=== PATIENT | female | born 1970 | race Caucasian/White ===

== ENCOUNTER 2018-07-25 21:17 | Emergency (ER) | payer OTHER ==
[2018-07-25] MEDS ORDERED: 0.9 % SODIUM CHLORIDE 1000ML 1,000 ML IV SCH (21:30)
[2018-07-25] MEDS ORDERED: DIPHENHYDRAMINE HCL 50 MG/ML VIAL IVP ONE (21:30)
[2018-07-25] MEDS ORDERED: METOCLOPRAMIDE HCL 10 MG/2 ML VIAL IVP ONE (21:30)
[2018-07-25] MEDS ORDERED: KETOROLAC 30 MG/ML VIAL IVP ONE (21:30)
--- NOTE | 2018-07-25 21:36 | Emergency Department Record ---
History of Present Illness - General Chief Complaint: Fall Injury Stated Complaint: FALL/VISION CHANGES/MCNEILL Time Seen by Provider: 07/25/18 21:18 Source: Patient Mode of Arrival: Ambulatory Limitations: No limitations - History of Present Illness Initial Comments: 47 yo female presents to ED for evaluation of worsening headache symptoms following ahead injury which occurred approximately 72 hours ago. Patient was using [employer] video-game visual device and was unaware that she was falling forward. Patient struck her right forehead on a hardwood floor resulting in swelling to the right forehead. Patient denies anticoagulation medication use, reports nausea and vomiting x 1 this evening. Patient did take Tylenol for her headache symptoms earlier this morning as well. MD Complaint: Fall Onset/Timin -: Days(s) Fall From: Other When Fall Occurred: # Days [employer] Fall Witnessed: Yes, by family Place Fall Occurred: Home Loss of Consciousness: None Prolonged Down Time?: No Symptoms Prior to Fall: None Location: Head Severity: Moderate Quality: Aching Context: Tripped/slipped Associated Symptoms: Headache - [place] Coma Scale Eye Response: (4) Open spontaneously Motor Response: (6) Obeys commands Verbal Response: (5) Oriented [place] Total: 15 - Related Data Home Medications Medication Instructions Recorded Confirmed Last Taken Bupropion HCl [Wellbutrin Xl] 300 mg PO DAILY 07/25/18 07/25/18 Unknown Cyclobenzaprine HCl [Flexeril] 10 mg PO TID PRN 07/25/18 07/25/18 Unknown Fluoxetine HCl [Prozac] 30 mg PO DAILY 07/25/18 07/25/18 Unknown Lamotrigine [Lamictal] 200 mg PO DAILY 07/25/18 07/25/18 Unknown Temazepam [Restoril] 30 mg PO QHS PRN 07/25/18 07/25/18 Unknown Allergies Allergy/AdvReac Type Severity Reaction Status Date / Time Penicillins Allergy HIVES Verified 07/25/18 21:27 Review of Systems Constitutional: Denies: Chills, Fever, Malaise, Night sweats Eyes: Denies: Eye discharge, Eye pain ENT: Denies: Congestion, Ear pain, Epistaxis Respiratory: Denies: Cough, Dyspnea Cardiovascular: Denies: Chest pain, Dyspnea on exertion Endocrine: Denies: Fatigue, Heat or cold intolerance Gastrointestinal: Reports: Nausea, Vomiting. Denies: Abdominal pain Genitourinary: Denies: Incontinence, Retention Musculoskeletal: Denies: Arthralgia, Back pain Skin: Reports: Bruising (Right josafat-orbital region). Denies: Change in color Neurological: Reports: Headache. Denies: Abnormal gait, Confusion, Seizure Psychiatric: Denies: Anxiety Hematological/Lymphatic: Denies: Anemia, Blood Clots Physical Exam - General General Appearance: Alert, Oriented x3, Cooperative, Moderate distress Limitations: No limitations - Head Head exam: Atraumatic, Normocephalic, Normal inspection Head exam detail: Contusion, Other (STS and ecchymosis to the right forehead, mild right josafat-orbital ecchymosis). negative: Abrasion, Ajime's sign, General tenderness, Hematoma, Laceration - Eye Eye exam: negative: Conjunctival injection, Periorbital swelling, Periorbital tenderness, Scleral icterus - ENT Ear exam: negative: Auricular hematoma, Auricular trauma Nasal Exam: negative: Active bleeding, Discharge, Dried blood, Foreign body Mouth exam: negative: Drooling, Laceration, Muffled voice, Tongue elevation - Neck Neck exam: Normal inspection. negative: Meningismus, Tenderness - Respiratory Respiratory exam: Normal lung sounds bilaterally. negative: Rales, Respiratory distress, Rhonchi, Stridor - Cardiovascular Cardiovascular Exam: Regular rate, Normal rhythm, Normal heart sounds - GI/Abdominal GI/Abdominal exam: Soft. negative: Rebound, Rigid, Tenderness - Rectal Rectal exam: Deferred - exam: Deferred - Extremities Extremities exam: Normal inspection. negative: Pedal edema, Tenderness - Back Back exam: Denies: CVA tenderness (R), CVA tenderness (L) - Neurological Neurological exam: Alert, Normal gait, Oriented X3 - Psychiatric Psychiatric exam: Normal affect, Normal mood - Skin Skin exam: Normal color. negative: Abrasion Type of lesion: negative: abrasion Course Vital Signs 07/25/18 21:26 Temperature 97.8 F Pulse Rate [ 79 Pulse Ox Probe] Respiratory 20 Rate Blood Pressure 161/116 [Left Arm] Pulse Ox 97 - Reevaluation(s) Reevaluation #1: 07/25/18 22:21 CT Brain: STS right forehead No intra-cranial injury identified. Reevaluation #2: 07/25/18 22:30 Patient was reassessed and updated on her CT imaging result Reports that her headache symptoms are improved from 8/10 to 4/10 and is feeling much better. Patient appears stable for discharge at this time after counseling re: post- concussive headache treatment was discussed. Disposition Disposition: Discharge Clinical Impression: Post-concussion headache Disposition: Home, Self-Care Condition: (2) Stable Instructions: Post Concussion Syndrome (ED) Additional Instructions: Return to ED if your symptoms worsen or if you have any concerns. Follow-up with your family doctor in 3-5 days as directed. Forms: Patient Portal Access Time of Disposition: 22:08 Quality - Quality Measures Quality Measures: N/A - Blood Pressure Screening Does Patient Have Any of the Following: No Blood Pressure Classification: Pre-Hypertensive BP Reading Systolic Measurement: 138 Diastolic Measurement: 89 Screening for High Blood Pressure: < Pre-Hypertensive BP, F/U Documented > [ G8950] Pre-Hypertensive Follow-up Interventions: Referral to alternative/primary care provider.
--- NOTE | 2018-07-27 09:42 | CT SCAN REPORT ---
EXAM: EMERGENCY HEAD CT WITHOUT CONTRAST HISTORY: PATIENT FELL ON MONDAY WHILE PLAYING VIRTUAL REALITY PLAY STATION, STILL HAVING HEADACHES. TECHNIQUE: Axial CT scan of the head was performed without IV contrast. Comparison: None. Encounter: Initial. FINDINGS: No definite acute intracranial hemorrhage identified. No focal mass effect or midline shift evident. No definite acute infarct or intracranial mass lesion seen. There is some soft tissue swelling in the scalp overlying the right forehead. No definite underlying calvarial fracture identified. IMPRESSION: 1. SOFT TISSUE SWELLING IN THE SCALP OVERLYING THE RIGHT FOREHEAD. 2. NO ACUTE INTRACRANIAL HEMORRHAGE OR FOCAL MASS EFFECT IDENTIFIED. JOB NUMBER: [id number] MTDD
== END 2018-07-25 22:41 | disposition home or self-care (01) ==
LOC: ER 21:17
DX: G44.319 Acute post-traumatic headache, not intractable (principal); F07.81 Postconcussional syndrome; R11.2 Nausea with vomiting, unspecified
CPT/HCPCS: 70450; 96361; 96374; 96375; 99284; J1200; J1885; J2765; J7030

== ENCOUNTER 2018-12-22 19:02 | Emergency (ER) | payer OTHER ==
[2018-12-22 19:37] LABS: BASO % 0.6 % (0-6); EOS % 0.8 % (0-6); GRAN % 64.6 % (47-80); HEMATOCRIT 38.6 % (35.0-47.0); HEMOGLOBIN 13.2 gm/dl (11.6-16.0); LYMPH % 26.6 % (16-45); MEAN CELL VOLUME 84.6 fl (81-97); MEAN CORPUSCULAR HEMOGLOBIN 28.9 pg (27-33); MEAN CORPUSCULAR HGB CONC 34.2 g/dl (32-36); MEAN PLATELET VOLUME 9.5 fl (7.4-10.4); MONO % 7.4 % (0-9); PLATELET COUNT 184 K/uL (130-400); RED BLOOD COUNT 4.56 M/uL (3.80-5.40); RED CELL DISTRIBUTION WIDTH 12.7 % (11.5-14.5); WHITE BLOOD COUNT W/O DIFF 4.7 K/uL (4.2-12.2)
--- NOTE | 2018-12-22 19:37 | Emergency Department Record ---
History of Present Illness - General Chief Complaint: Chest Pain Stated Complaint: CHEST PAIN Time Seen by Provider: 12/22/18 19:05 Source: Patient Mode of Arrival: Ambulatory Limitations: No limitations - History of Present Illness Initial Comments: 48 yo female presents with pain on and off in the chest, left and right arm, and left leg for about a week. The pain will come on at different times. It is sharp and last for the entire day. She reports it hurts to take a deep breath at times causing her to feel short of breath. Sometimes it involved the entire left side or the body and other times in the right arm. No cough. No known history of CAD, PE, DVT. She denies DM, elevated cholesterol, smoking or treatment for HTN. No calf pain. Her father had an OK in his mid 50's MD Complaint: Chest pain, Other Onset/Timin -: Week(s) Onset: During exertion Pain Location: Epigastric Pain Radiation: LUE, Neck Severity: Moderate Quality: Sharp Consistency: Intermittent Improves With: Remaining still Worsens With: Inspiration, Movement Treatments Prior to Arrival: None - Related Data Allergies Allergy/AdvReac Type Severity Reaction Status Date / Time Penicillins Allergy HIVES Verified 07/25/18 21:27 Travel Screening - Travel/Exposure Within Last 30 Days Have you traveled within the last 30 days?: No Review of Systems Constitutional: Denies: Chills, Fever, Malaise, Weakness Eyes: Denies: Eye discharge, Eye pain, Photophobia, Vision change ENT: Reports: Other. Denies: Congestion, Dental pain, Ear pain, Epistaxis, Throat pain Respiratory: Reports: Dyspnea. Denies: Cough, Hemoptysis, Stridor, Wheezes Cardiovascular: Reports: Chest pain. Denies: Dyspnea on exertion, Edema, Palpitations, Syncope Endocrine: Denies: Fatigue Gastrointestinal: Denies: Abdominal pain, Constipation, Diarrhea, Nausea, Vomiting Genitourinary: Denies: Discharge, Dysuria, Urgency Musculoskeletal: Reports: Back pain, Myalgia, Neck pain. 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 - Hx Genitourinary Disorders: No - ENDOCRINE Hx Endocrine Disorders: No - MUSCULOSKELETAL Hx Musculoskeletal Disorders: Yes Comment:: TMJ; Carpal tunnel - PSYCH Hx Psych Problems: Yes Hx Depression: Yes Comment:: PTSD; Bipolar - HEMATOLOGY/ONCOLOGY Hx Hematology/Oncology Disorders: No Family Medical History Any Significant Family History?: Yes Hx Cancer: Grandparents Hx Diabetes: Father, Mother Hx HTN: Father, Mother Hx Stroke: Father Physical Exam - General General Appearance: Alert, Oriented x3, Cooperative, No acute distress Limitations: No limitations - Head Head exam: Atraumatic, Normocephalic, Normal inspection - Eye Eye exam: Normal appearance, PERRL. negative: Conjunctival injection, Scleral icterus - ENT ENT exam: Normal exam, Mucous membranes moist Ear exam: Normal external inspection Nasal Exam: Normal inspection Mouth exam: Normal external inspection Teeth exam: Normal inspection Throat exam: Normal inspection - Neck Neck exam: Normal inspection, Full ROM. negative: Lymphadenopathy, Meningismus , Tenderness, Thyromegaly - Respiratory Respiratory exam: Normal lung sounds bilaterally. negative: Accessory muscle use, Chest wall tenderness, Decreased breath sounds, Prolonged expiratory, Respiratory distress, Rhonchi, Stridor, Wheezes - Cardiovascular Cardiovascular Exam: Regular rate, Normal rhythm, Normal heart sounds. negative : Diastolic murmur, Gallop, Irregular rhythm, Systolic murmur, Tachycardia Peripheral Pulses: 2+: Radial (R), Radial (L) - GI/Abdominal GI/Abdominal exam: Soft. negative: Tenderness - Rectal Rectal exam: Deferred - exam: Deferred - Extremities Extremities exam: Normal inspection, Full ROM. negative: Calf tenderness, Pedal edema, Tenderness - Back Back exam: Reports: Tenderness, Vertebral tenderness. Denies: CVA tenderness (R ), CVA tenderness (L), Paraspinal tenderness - Neurological Neurological exam: Alert, Normal gait, Oriented X3. negative: Abnormal gait, Motor sensory deficit - Psychiatric Psychiatric exam: Normal affect, Normal mood. negative: Agitated, Anxious - Skin Skin exam: Dry, Intact, Normal color, Warm Course Vital Signs 12/22/18 19:05 Temperature 98.0 F Pulse Rate 71 Respiratory 16 Rate Blood Pressure 142/106 Pulse Ox 99 - Reevaluation(s) Reevaluation #1: 12/22/18 19:26 EKG #1: 19:18 Rate: 72 Rhythm: sinus [place]: normal Intervals: normal ST segments: normal Prior: none 12/22/18 19:27 12/22/18 20:14 The labs were reviewed The troponin is normal Mild elevation in the D-dimer. CTA ordered Minimal elevation of the LFTs Normal renal function The CTA of the chest was negative The patient was informed to follow up the final results with her PCP The pain is atypical lasting for entire day at a time, sometimes involves the entire side of the body, hurts to breath at times Her HEART SCORE is low risk DC home She will be referred to the cardiology clinic at [facility] as well 12/22/18 Medical Decision Making - Lab Data Result diagrams: 12/22/18 19:30 12/22/18 19:30 Disposition Disposition: Discharge Clinical Impression: Atypical chest pain Disposition: Home, Self-Care Condition: (1) Good Instructions: Chest Pain (ED) Additional Instructions: Return to the ED if the symptoms return or and concerns You have been referred to the cardiology clinic at [facility] for follow up of the chest pain You have a small nodule in the right lung. You will need to follow this up with your doctor in the next 1-2 months See you doctor regarding the pain down your left leg. This may be a pinched nerve (sciatica) that requires further testing Referrals: BC JACQUES M.D. [MEDICAL DOCTOR] - Forms: Patient Portal Access Time of Disposition: 22:00 Quality - Quality Measures Quality Measures: N/A - Blood Pressure Screening Does Patient Have Any of the Following: No Blood Pressure Classification: Hypertensive Reading Systolic Measurement: 142 Diastolic Measurement: 106 Screening for High Blood Pressure: < Pre-Hypertensive BP, F/U Documented > [ G8950] Pre-Hypertensive Follow-up Interventions: Referral to alternative/primary care provider.
[2018-12-22 19:46] LABS: BLOOD UREA NITROGEN 16 mg/dL (6-20); CREATININE 0.9 mg/dL (0.5-0.9); EST GLOMERULAR FILTRATION RATE > 60 mL/min
[2018-12-22 19:47] LABS: TOTAL PROTEIN 7.4 g/dL (6.6-8.7)
[2018-12-22 19:49] LABS: GLUCOSE,RANDOM 91 mg/dL (74-109); PARTIAL THROMBOPLASTIN TIME 28.2 SECONDS (24.5-39.1); PROTHROMBIN TIME (PATIENT) 10.1 SECONDS (9.5-12.1)
[2018-12-22 19:51] LABS: ALB/GLOB RATIO 1.6 (1.1-1.8); ALBUMIN 4.5 g/dL (4.0-5.0); ALT/SGPT 57 U/L (<33); AST/SGOT 36 U/L (10.0-35.0)
[2018-12-22 19:52] LABS: ALKALINE PHOSPHATASE 119 U/L (35-104)
[2018-12-22] MEDS ORDERED: KETOROLAC 30 MG/ML VIAL IVP ONE (21:22)
--- NOTE | 2018-12-25 12:36 | CT ANGIOGRAM REPORT ---
EXAM: CTA OF THE CHEST HISTORY: CHEST PAIN, TECHNIQUE: After the intravenous administration of 90 ml Omnipaque 350, axial images are obtained in CTA technique from the thoracic inlet to the lung bases. Post processed MIP images are evaluated. FINDINGS: The thoracic inlet and axilla are unremarkable. The mediastinum is normal, but there are mildly enlarged right hilar lymph nodes. The heart is normal in size. The aorta is normal. There is no evidence of acute intraluminal filling defects in the pulmonary arteries. There is evidence of focal consolidative appearing nodular density in the posterior right lower lobe. The nodule measures 15 mm in dimension and is surrounded by ground glass infiltrate in much of the remaining right lower lobe. There is minor ground glass infiltrate in the left lower lobe. The upper lungs are relatively clear. There are no additional parenchymal nodules. There is a trace amount of right pleural fluid. The upper abdomen is unremarkable. IMPRESSION: 1. THERE IS NO EVIDENCE OF AN ACUTE EMBOLISM. 2. NODULAR DENSITY IN THE RIGHT LOWER LOBE. THE ADJACENT/SURROUNDING GROUND GLASS INFILTRATE MIGHT FAVOR THE PROCESS BEING INFLAMMATORY IN NATURE AND THE LYMPH NODES BEING REACTIVE, HOWEVER, A FOLLOW-UP CT SCAN OF THE CHEST AFTER AN APPROPRIATE COURSE OF ANTIBIOTIC THERAPY IS RECOMMENDED TO EXCLUDE NEOPLASM. JOB NUMBER: [id number] MTDD
== END 2018-12-22 22:12 | disposition home or self-care (01) ==
LOC: ER 19:02
DX: R07.89 Other chest pain (principal); R10.13 Epigastric pain
CPT/HCPCS: 71275; 80053; 84484; 85025; 85379; 85610; 85730; 93005; 93010; 96374; 99284; J1885

== ENCOUNTER 2019-04-04 12:10 | Emergency (ER) | payer OTHER ==
[2019-04-04] MEDS ORDERED: KETOROLAC 30 MG/ML VIAL IM ONE (12:31)
--- NOTE | 2019-04-04 12:45 | Emergency Department Record ---
History of Present Illness - General Chief complaint: Head Injury Stated complaint: HEAD INJURY Time Seen by Provider: 04/04/19 12:14 Source: Patient, Family Mode of Arrival: Ambulatory Limitations: No limitations - History of Present Illness Initial comments: The patient is here after tripping and falling while running a half hour ago. She fell onto some rocks hitting her L face and head and her L arm, hand and R knee. There was no LOC and the patient denies any neck or back pain. She did ambulate here with no difficulty. The patient is having pain to her L face and eye area and also her L arm and hand. There is no R knee pain. The patient's Tetanus is UTD. The patient denies any visual changes or blurriness. MD Complaint: Fall Onset/Timin -: Minutes(s) Location: Face, Frontal, Occipital Loss of Consciousness: No Previous Trauma to this Area: No Place: Outdoors Severity: Moderate Severity scale (1-10): 9 Quality: Sharp Consistency: Constant Provoking factors: None known Other Injuries: None Associated Symptoms: Denies other symptoms - Related Data Home Medications Medication Instructions Recorded Confirmed Last Taken Bupropion HCl [Wellbutrin Xl] 300 mg PO DAILY 04/04/19 04/04/19 Unknown Allergies/Adverse reactions: Allergies Allergy/AdvReac Type Severity Reaction Status Date / Time Penicillins Allergy HIVES Verified 04/04/19 12:15 Travel Screening - Travel/Exposure Within Last 30 Days Have you traveled within the last 30 days?: No Review of Systems Constitutional: Denies: Chills, Fever Eyes: Denies: Eye discharge ENT: Denies: Congestion Respiratory: Denies: Cough, Dyspnea Cardiovascular: Denies: Arrhythmia Past Medical History - SOCIAL HISTORY Smoking Status: Never smoker Alcohol Use: None Drug Use: None - RESPIRATORY Hx Respiratory Disorders: No - CARDIOVASCULAR Hx Cardio Disorders: No - NEURO Hx Neuro Disorders: Yes Hx Headaches: Yes - GI Hx GI Disorders: No 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 - Hx Genitourinary Disorders: No - ENDOCRINE Hx Endocrine Disorders: No - MUSCULOSKELETAL Hx Musculoskeletal Disorders: Yes Comment:: TMJ; Carpal tunnel - PSYCH Hx Psych Problems: Yes Hx Depression: Yes Comment:: PTSD; Bipolar - HEMATOLOGY/ONCOLOGY Hx Hematology/Oncology Disorders: No Family Medical History Any Significant Family History?: Yes Hx Cancer: Grandparents Hx Diabetes: Father, Mother Hx HTN: Father, Mother Hx Stroke: Father Physical Exam - General General Appearance: Alert, Oriented x3, Cooperative, No acute distress - Head Head exam: Normocephalic. negative: Atraumatic, Normal inspection Head exam detail: Contusion (There is a significant L frontal and supra-orbital contusion.) Image of Face/Head: 1 - Area of trauma and swelling. 2 - Area of pain and tenderness and swelling. - Eye Eye exam: PERRL, EOMI, Periorbital swelling (L eye only.), Periorbital tenderness (L eye superior and inferior to the eyeball.). negative: Normal appearance, Conjunctival injection - ENT Throat exam: Normal inspection. negative: Tonsillar erythema, Tonsillar exudate - Neck Neck exam: Normal inspection, Full ROM. negative: Tenderness (There is no Cspine tenderness.) - Respiratory Respiratory exam: Normal lung sounds bilaterally. negative: Respiratory distress - Cardiovascular Cardiovascular Exam: Regular rate, Normal rhythm, Normal heart sounds - GI/Abdominal GI/Abdominal exam: Soft, Normal bowel sounds. negative: Tenderness - Extremities Extremities exam: Full ROM (There is full ROM to the R knee with no pain. ), Tenderness (There is tenderness to the L forearm and dorsal L hand. There is road rash to the L medial proximal forearm area and R anterior knee. There is no R knee tenderness.). negative: Normal inspection Image of Full Body: 1 - Road rash and tenderness. 2 - Road rash but no tenderness. - Neurological Neurological exam: Alert, Normal gait, Oriented X3. negative: Abnormal gait, Altered, Motor sensory deficit - Skin Skin exam: Rash Course Vital Signs 04/04/19 12:16 Temperature 97.6 F Pulse Rate 72 Respiratory 16 Rate Blood Pressure 145/90 Pulse Ox 98 - Reevaluation(s) Reevaluation #1: The patient is doing better at this time. Her xrays are all neg for fx or dislocation. I did discuss the need to take her home pain medicines and ice the affected areas aggressively. She is to see her PCP early next week for recheck and to return to the ER for any worsening symptoms. 04/04/19 13:54 Medical Decision Making - Data Complexity MDM Data: X-Ray Ordered and/or Reviewed - Radiology Data Radiology results: Report reviewed (All xrays neg for fx or dislocation.) Disposition Disposition: Discharge Clinical Impression: Facial contusion Qualifiers: Encounter type: initial encounter Qualified Code(s): S00.83XA - Contusion of other part of head, initial encounter Abrasion forearm Qualifiers: Encounter type: initial encounter Laterality: left Qualified Code(s): S50.812A - Abrasion of left forearm, initial encounter Disposition: Home, Self-Care Condition: (2) Stable Instructions: Head Injury (ED) Additional Instructions: Please ice the swollen areas as much as possible and keep the abrasions clean and dressed with Antibiotic ointment during the day. Please see your family doctor for recheck next week and return to the ER for any worsening symptoms. Forms: Patient Portal Access Time of Disposition: 13:56 Quality - Quality Measures Quality Measures: Blunt Head Trauma (>2yr) - Blunt Head Trauma - Adult Quality Measure: Measure #415: Utilization of CT for Minor Blunt Head Trauma ICD10 Codes Entered: Yes View Details: Yes Was CT ordered: Yes Does Patient Have Any of the Following: Taking Antiplatelet Med [place] Score: Please complete [place] Coma Scale above Utilization of CT for Minor Blunt Head Trauma: Patient Excluded [G9531] - Blood Pressure Screening View Details: Yes Does Patient Have Any of the Following: No Blood Pressure Classification: Hypertensive Reading Systolic Measurement: 145 Diastolic Measurement: 90 Screening for High Blood Pressure: < First Hypertensive BP, F/U Documented > [Q8 950] First Hypertensive Follow-up Interventions: Referral to alternative/primary care provider.
--- NOTE | 2019-04-05 08:01 | CT SCAN REPORT ---
EXAM: CT SCAN OF THE BRAIN WITHOUT CONTRAST HISTORY: PATIENT TRIPPED WHILE RUNNING AND FELL. STRUCK THE FACE ON THE GROUND. TECHNIQUE: Standard CT imaging of the brain was performed in the axial plane without contrast. Additional coronal and sagittal reformatted images were also performed. Comparison: 07/25/18. Encounter: Initial. Hand dominance: Right. FINDINGS: The ventricles and subarachnoid spaces are normal. There is no mass, mass effect, intracranial hemorrhage, visible infarct, or abnormal extraaxial fluid. The skull is intact. Left periorbital soft tissue swelling/hematoma is present. The intraorbital contents are normal. The visualized facial bones appear intact. The paranasal sinuses are clear. The mastoid air cells are also clear. IMPRESSION: 1. NO ACUTE INTRACRANIAL ABNORMALITY OR SKULL FRACTURE. 2. LEFT PERIORBITAL SOFT TISSUE SWELLING/HEMATOMA. J[facility]BER: [id number] [facility]
--- NOTE | 2019-04-05 08:02 | RADIOLOGY REPORT ---
EXAM: LEFT HAND HISTORY: TRIPPED AND FELL WHILE RUNNING. LEFT HAND PAIN. TECHNIQUE: Three views of the left hand were obtained. Comparison: None. FINDINGS: The bones appear intact. There is no acute fracture or dislocation. There is no radiopaque foreign body. IMPRESSION: NO FRACTURE IDENTIFIED. JOB NUMBER: [id number] MTDD
--- NOTE | 2019-04-05 08:05 | RADIOLOGY REPORT ---
EXAM: LEFT FOREARM HISTORY: LEFT FOREARM PAIN AND ABRASIONS STATUS POST FALL. TECHNIQUE: Two views of the left forearm were obtained. Comparison: Left hand series from the same date. Encounter: Initial. FINDINGS: The bones appear intact. There is no acute fracture or dislocation. There is no elbow effusion. There are no radiopaque foreign bodies. IMPRESSION: NO FRACTURE IDENTIFIED. JOB NUMBER: [id number] MTDD
== END 2019-04-04 14:08 | disposition home or self-care (01) ==
LOC: ER 12:10
DX: S00.83XA Contusion of other part of head, initial encounter (principal); S50.812A Abrasion of left forearm, initial encounter; S80.211A Abrasion, right knee, initial encounter; M25.542 Pain in joints of left hand; W18.09XA Striking against other object with subsequent fall, initial encounter; Y92.89 Other specified places as the place of occurrence of the external cause
CPT/HCPCS: 99284 ×2; 96372; 73090; 73130; 70450; J1885

== ENCOUNTER 2019-04-05 20:02 | Emergency (ER) | payer OTHER ==
--- NOTE | 2019-04-05 20:43 | Emergency Department Record ---
History of Present Illness - General Chief Complaint: Recheck - Other Stated Complaint: FALL INJURY Time Seen by Provider: 04/05/19 20:10 Source: Patient Mode of arrival: Ambulatory Limitations: No limitations - History of Present Illness Initial Comments: Seen here yesterday after a fall while jogging. Has contusion and abrasions to the left face and arm. Now notes pain to the left anterior ribs that she did not notice yesterday. Hurts to breath deeply and to move arm. No MCNEILL, cough, ADB pains. Taking Motrin with some relief of pain. Onset/Timin -: Days(s) Initial Visit For: Other Returns Today for: Persistent/worsening pain related to initial visit Symptoms Since Prior Visit: No new symptoms Associated Symptoms: None - Related Data Home Medications Medication Instructions Recorded Confirmed Last Taken Tramadol HCl 50 mg PO Q8H 04/05/19 04/05/19 04/05/19 Allergies Allergy/AdvReac Type Severity Reaction Status Date / Time Penicillins Allergy HIVES Verified 04/05/19 20:09 Travel Screening - Travel/Exposure Within Last 30 Days Have you traveled within the last 30 days?: No - Travel/Exposure Within Last Year Have you traveled outside the [place] in the last year?: No - Additonal Travel Details Have you been exposed to anyone with a communicable illness?: No - Travel Symptoms Symptom Screening: None Review of Systems Constitutional: Denies: Chills, Fever Eyes: Denies: Eye discharge, Photophobia ENT: Denies: Congestion, Ear pain Respiratory: Reports: As per HPI. Denies: Cough, Dyspnea, Hemoptysis Cardiovascular: Reports: As per HPI, Chest pain (left chest wall pain ) Endocrine: Denies: Fatigue Gastrointestinal: Denies: Abdominal pain, Diarrhea, Nausea, Vomiting Musculoskeletal: Denies: Back pain, Joint swelling Skin: Reports: As per HPI, Bruising Neurological: Denies: Confusion, Headache, Tingling, Weakness Psychiatric: Denies: Anxiety Hematological/Lymphatic: Denies: Anemia Past Medical History - SOCIAL HISTORY Smoking Status: Never smoker Alcohol Use: None Drug Use: None - RESPIRATORY Hx Respiratory Disorders: No - CARDIOVASCULAR Hx Cardio Disorders: No - NEURO Hx Neuro Disorders: Yes Hx Headaches: Yes - GI Hx GI Disorders: No 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 - Hx Genitourinary Disorders: No - ENDOCRINE Hx Endocrine Disorders: No - MUSCULOSKELETAL Hx Musculoskeletal Disorders: Yes Comment:: TMJ; Carpal tunnel - PSYCH Hx Psych Problems: Yes Hx Depression: Yes Comment:: PTSD; Bipolar - HEMATOLOGY/ONCOLOGY Hx Hematology/Oncology Disorders: No Family Medical History Any Significant Family History?: No Hx Cancer: Grandparents Hx Diabetes: Father, Mother Hx HTN: Father, Mother Hx Stroke: Father Physical Exam - General General Appearance: Alert, Oriented x3, Cooperative, Mild distress, Moderate distress - Head Head exam: Other (bruising to the left periorbital and upper cheek. ) - Eye Eye exam: Normal appearance, PERRL, EOMI, Periorbital swelling, Other (OS without hyphema, full EOMI on testing. No depression of zygoma left. ) - ENT ENT exam: Mucous membranes moist, Normal orophraynx, TM's normal bilaterally Nasal Exam: Normal inspection - Neck Neck exam: Normal inspection, Full ROM. negative: Tenderness - Respiratory Respiratory exam: Normal lung sounds bilaterally, Chest wall tenderness (left chest wall tender without crepitence or ecchymosis. Lower anterior chest wall just under breast. ). negative: Accessory muscle use, Decreased breath sounds, Rhonchi, Wheezes - Cardiovascular Cardiovascular Exam: Regular rate, Normal rhythm. negative: Tachycardia Peripheral Pulses: 2+: Radial (R), Radial (L) - GI/Abdominal GI/Abdominal exam: Soft, Normal bowel sounds. negative: Guarding, Tenderness - Extremities Extremities exam: Normal inspection, Full ROM. negative: Joint swelling - Back Back exam: Reports: Normal inspection. Denies: Paraspinal tenderness, Tenderness - Neurological Neurological exam: Alert, Normal gait, Oriented X3, Other (GCS 15 ) - Psychiatric Psychiatric exam: Normal affect, Normal mood - Skin Skin exam: Abrasion (abrasion to left arm, left face ) Course Vital Signs 04/05/19 20:02 Temperature 98.3 F Pulse Rate [ 71 Pulse Ox Probe] Respiratory 20 Rate Blood Pressure 159/94 [Left Arm] Pulse Ox 99 - Reevaluation(s) Reevaluation #1: 04/05/19 20:49 Seen and exam. CXR without pneumothorax or obvious rib fracture. Long talk about possible occult rib fx or costral seperation. Discussed pain control and the need for deep inspiration with pillow splint to prevent atelectasis. Pt understands. Has motrin and Tramadol at home for pain. Offered [place] - pt refuses. Disposition Disposition: Discharge Clinical Impression: Contusion of rib on left side, Fall Disposition: Home, Self-Care Condition: (2) Stable Instructions: RICE Therapy (ED), Rib Contusion (ED) Additional Instructions: Continue with your Motrin and ICE to areas as needed. Pt has Tramadol to use prn Deep inspiration over 15 minutes with pillow splinting of the ribs. Follow up with your physician in 1-2 days Return to the ED as needed for any concern. Forms: Patient Portal Access Time of Disposition: 20:43 Quality - Quality Measures Quality Measures: N/A, Blunt Head Trauma (>2yr) - Blunt Head Trauma - Adult Quality Measure: Measure #415: Utilization of CT for Minor Blunt Head Trauma ICD10 Codes Entered: Yes Was CT ordered: Yes Does Patient Have Any of the Following: Multisystem Trauma [place]onda Score: Please complete [place] Coma Scale above Utilization of CT for Minor Blunt Head Trauma: < CT Done, Appropriate Indication > [G9529] Additional Inclusion Criteria: Within 24hrs (AND) GCS of 15 (AND) CT ordered. [G9530] Indications For CT: Dangerous Mechanism of Injury - Blood Pressure Screening Does Patient Have Any of the Following: No Blood Pressure Classification: Hypertensive Reading Systolic Measurement: 159 Diastolic Measurement: 94 Screening for High Blood Pressure: < Pre-Hypertensive BP, F/U Documented > [G8950] Pre-Hypertensive Follow-up Interventions: Follow-up with rescreen every year.
--- NOTE | 2019-04-07 21:46 | RADIOLOGY REPORT ---
EXAM: CHEST 2 VIEWS HISTORY: PATIENT FELL YESTERDAY, NEW LEFT RIB PAIN STARTING THIS AFTERNOON. TECHNIQUE: PA and lateral views. COMPARISON: No prior chest x-ray with which to compare. ENCOUNTER: Initial. FINDINGS: Heart size is within normal limits. No definite acute infiltrate seen. No pleural effusion or pneumothorax evident. No definite left rib fracture identified, although this study does not constitute a complete left rib series. Mild torsion of the aorta. Mild spurring in the thoracic spine inferiorly. IMPRESSION: MILD SPURRING IN THE LOWER THORACIC SPINE. NO ACUTE INFILTRATE OR PNEUMOTHORAX EVIDENT. JOB NUMBER: [id number] [facility]
== END 2019-04-05 20:53 | disposition home or self-care (01) ==
LOC: ER 20:02
DX: S20.212A Contusion of left front wall of thorax, initial encounter (principal); S05.12XA Contusion of eyeball and orbital tissues, left eye, initial encounter; S00.83XA Contusion of other part of head, initial encounter; W19.XXXA Unspecified fall, initial encounter; Y93.02 Activity, running
CPT/HCPCS: 71046; 99283

== ENCOUNTER 2019-04-10 12:41 | Emergency (ER) | payer SELFPAY ==
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
[2019-04-10 14:17] LABS: ABSOLUTE NEUTROPHIL COUNT 5.56; BASO % 0.3 % (0-6); EOS % 2.3 % (0-6); GRAN % 78.2 % (47-80); HEMATOCRIT 42.1 % (35.0-47.0); HEMOGLOBIN 14.3 gm/dl (11.6-16.0); LYMPH % 15.1 % (16-45); MEAN CELL VOLUME 83.9 fl (81-97); MEAN CORPUSCULAR HEMOGLOBIN 28.5 pg (27-33); MEAN PLATELET VOLUME 9.8 fl (7.4-10.4); MONO % 4.1 % (0-9); PLATELET COUNT 213 K/uL (130-400); RED BLOOD COUNT 5.02 M/uL (3.80-5.40); RED CELL DISTRIBUTION WIDTH 13.1 % (11.5-14.5); WHITE BLOOD COUNT W/O DIFF 7.1 K/uL (4.2-12.2)
[2019-04-10 14:26] LABS: BLOOD UREA NITROGEN 13 mg/dL (6-20); CREATININE 0.7 mg/dL (0.5-0.9); EST GLOMERULAR FILTRATION RATE > 60 mL/min
[2019-04-10 14:29] LABS: GLUCOSE,RANDOM 88 mg/dL (74-109)
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
== END 2019-04-10 15:34 | disposition home or self-care (01) ==
LOC: ER 12:41
DX: S00.83XA Contusion of other part of head, initial encounter (principal); S16.1XXA Strain of muscle, fascia and tendon at neck level, initial encounter; V43.52XA Car driver injured in collision with other type car in traffic accident, initial encounter
CPT/HCPCS: 70450; 72125; 80048; 85025; 99284